=== PATIENT | male | born 1960 | race Caucasian/White ===

== ENCOUNTER 2016-11-30 17:51 | Emergency (ER) | payer BC ==
--- NOTE | 2016-11-30 18:55 | ED Physician Documentation ---
PD HPI UPPER EXT INJURY - Stated complaint Stated Complaint: R FINGER LAC - Chief complaint Chief Complaint: Laceration - History obtained from History obtained from: Patient - History of Present Illness Location: Right, Finger (tip of middle finger) Type of injury: Blunt / blow (he reached into blower area of riding mower and caught fingertip, with tearing crush wound to tip.) Where injury occurred: Home Timing - onset: How many hours ago (1) Timing - duration: Hours (1) Timing - details: Abrupt onset, Still present Worsened by: Palpating Associated symptoms: Weakness (can't flex at tip of finger) Similar symptoms before: Has not had sx before Recently seen: Not recently seen Review of Systems Neurologic: reports: Focal weakness, Numbness (less feeling in tip, but has good color to it) Immunocompromised: denies: Immunocompromised PD PAST MEDICAL HISTORY - Past Medical History Cardiovascular: Atrial fibrillation - Past Surgical History Past Surgical History: Yes Ortho: ACL reconstruction, Other - Present Medications Home Medications: Ambulatory Orders Medication Instructions Recorded Confirmed Cephalexin [Keflex] 500 mg PO QID #24 capsule 11/30/16 Flecainide [Tambocar] 150 mg PO BID 11/30/16 11/30/16 Hydrocodone/Acetaminophen [Eden 1 each PO Q6H PRN #20 tablet 11/30/16 5-325 Tablet] - Allergies Allergies/Adverse Reactions: Allergies Allergy/AdvReac Type Severity Reaction Status Date / Time No Known Drug Allergies Allergy Verified 11/30/16 17:59 - Social History Does the pt smoke?: No Smoking Status: Never smoker PD ED PE NORMAL - Vitals Vital signs reviewed: Yes - General General: Alert and oriented X 3, No acute distress, Well developed/nourished - Derm Derm: Normal color, Warm and dry - Extremities Extremities: Other (right middle finger tip with transverse laceration just distal to DIP joint, palmar aspect running about 2/3 around, so that flap can be lifted open like a car vaughn. This exposes the end of the middle phalanx with minimal damage there, but obviously detached volar plate and flexor tendon insertion. There is heavy grass contamination. Mild active bleeding. Good color and cap refill in tip of finger. Slight sensation in the tip of finger. No damage to nailbed. ) - Neuro Neuro: Alert and oriented X 3, Normal speech Results - Vitals Vitals: Vital Signs - 24 hr 11/30/16 11/30/16 17:54 19:17 Temperature 36.3 C L 37.0 C Heart Rate 77 73 Respiratory 18 16 Rate Blood Pressure 125/85 H 118/74 O2 Saturation 99 99 Oxygen O2 Source Room air - Rads (name of study) finger Radiology: Prelim report reviewed, EMP read contemporaneously (comminuted fracture distal phalanx.) Procedures - Laceration (location) right middle finger Length in cm: 2 Wound type: Curved, Heavily Contaminated Neurovascular status: No: Motor intact Tendon involvement: Tendon Injury (flexor tendon insertion disrupted) Anesthesia: Marcaine 0.5% (digital block) Wound Preparation: Irrigated copiously NS Skin layer closure: Nylon, Interrupted (just closed to keep clean and approximated. No deep repair, defer to Hand Surgeon for tomorrow), Size #-0 - enter number (4) PD MEDICAL DECISION MAKING - ED course Complexity details: reviewed results, considered differential, d/w patient, d/w strategy planning consultant (Hand Surgery Dr. Banks, in [place], will see patient in follow up - to call office 8 am tomorrow. ) Departure - Departure Disposition: 01 Home, Self Care Clinical Impression: Finger fracture, right Finger laceration involving tendon Qualifiers: Encounter type: initial encounter Qualified Code(s): S61.219A - Laceration without foreign body of unspecified finger without damage to nail, initial encounter Record reviewed to determine appropriate education?: Yes Instructions: ED Fx Finger Open, ED Laceration Tendon Prescriptions: Cephalexin [Keflex] 500 mg PO QID #24 capsule Hydrocodone/Acetaminophen [Eden 5-325 Tablet] 1 each PO Q6H PRN #20 tablet PRN Reason: Pain Comments: Keep initial dressing on until tomorrow. Elevate and rest hand to reduce swelling. Call Dr. Banks, Hand Surgeon in [place], after their office opens at 8 am tomorrow, , to arrange follow up. Keflex 500 mg 4 times daily antibiotic. Take probiotics while on this to minimize GI effects. Tylenol or Ibuprofen as needed for pains; add hydrocodone as needed. Recheck if signs of infection. You did receive a tetanus booster while here today. Discharge Date/Time: 11/30/16 20:41
--- NOTE | 2016-11-30 19:08 | XRAY Preliminary Report ---
Exam: XR Finger(s) RT IMPRESSION: Comminuted intra-articular fracture with displacement of the third distal phalanx with wi dening and subluxation of the DIP joint. [facility] SITE ID: [id number]
--- NOTE | 2016-11-30 19:11 | XRAY Report ---
EXAM: RIGHT THIRD DIGIT RADIOGRAPHY EXAM DATE: 11/30/2016 06:49 PM. CLINICAL HISTORY: Partial amputation. COMPARISON: None. TECHNIQUE: 3 views. FINDINGS: Bones: There is a comminuted fracture with intra-articular extension of the third distal phalanx. The re is a fracture fragment from the base of the distal phalanx along the palmar side which is displace d by 5 mm proximally. Joints: There is subluxation and joint space widening of the third distal interphalangeal joint. Soft Tissues: There is soft tissue swelling and irregularity of the distal third digit. IMPRESSION: Comminuted intra-articular fracture with displacement of the third distal phalanx with wi dening and subluxation of the DIP joint. [facility] Referring Provider Line: [phone] SITE ID: [id number]
[2016-11-30 19:19] VITALS: BP 118/74
[2016-11-30] MEDS ORDERED: CEPHALEXIN 250 MG CAPSULE PO STA (20:15)
[2016-11-30] MEDS ORDERED: CEPHALEXIN 250 MG Prepack 8 PO ONE ×2 (20:15→20:20)
[2016-11-30] MEDS ORDERED: HYDROcod/ACET 5/325 Prepack 6 PO ONE ×2 (20:15→20:20)
[2016-11-30] MEDS ORDERED: TETANUS/DIPHTHERIA/PERTUSSIS 0.5 ML SYRINGE IM ONE ×2 (20:16→20:21)
[2016-11-30] MEDS ORDERED: CEPHALEXIN 250 MG CAPSULE PO ONE (20:20)
--- NOTE | 2016-12-04 17:19 | ED Physician Documentation ---
ED Addendum - Addendum Addendum: 12/04/16 17:16 I know patient personally, and had talked with him 12/03, and he described increased redness of the finger proximal to the injury. I met with him and there was redness of the finger, some mild blistering around the sutures itself. No pain in forearm to palpation. Blisters had clear yellow fluid and not purulence. Added Bactrim DS bid, with double dose to begin. He is to continue soaking and keep rested and elevated. Will check it again in 1-2 days. If not improved, will need to open the wound for further debridement/ irrigation. He has appt with Hand Surgeon on Sun, as the specialist apparently busy/in surgery this past Sunday.
== END 2016-11-30 20:41 | disposition home or self-care (01) ==
LOC: ED 17:51
DX: S62.632B Displaced fracture of distal phalanx of right middle finger, initial encounter for open fracture (principal); W28.XXXA Contact with powered lawn mower, initial encounter; Z23 Encounter for immunization; I48.91 Unspecified atrial fibrillation
CPT/HCPCS: 12001; 73140; 90471; 90715; 99283; A9270

== ENCOUNTER 2021-01-12 15:09 | Outpatient (CLI) | payer OTHER | END 2021-01-12 15:10 | disposition home or self-care (01) | LOC: COV 15:09 | PROVIDERS: ATTEND Family Medicine | DX: R09.81 Nasal congestion (principal); J34.89 Other specified disorders of nose and nasal sinuses; Z20.822 Contact with and (suspected) exposure to COVID-19 ==